=== PATIENT | female | born 1980 | race Caucasian/White ===

== ENCOUNTER 2016-06-28 21:44 | Emergency (ER) | payer OTHER ==
[~2016-06-28] VITALS: Ht 152.4 cm; Wt 96.7 kg
[~2016-06-28 21:44] MED LIST: CAMILA0.35 MG PO; CIPRO500 MG PO; CYMBALTA60 MG PO; HEMOCYTE324 MG PO; IBUPROFEN800 MG PO; MOTRIN800 MG PO; TYLENOL EXTRA500 MG PO; TYLENOL WITH C1 EACH PO
[2016-06-28 23:33] VITALS: BP 119/88
== END 2016-06-28 23:42 | disposition home or self-care (01) ==
LOC: EME 21:44 → EXP 21:44
DX: R51 Headache (principal); S06.0X0A Concussion without loss of consciousness, initial encounter; F17.200 Nicotine dependence, unspecified, uncomplicated; W22.03XA Walked into furniture, initial encounter
CPT/HCPCS: 70450; 99281; 99283

== ENCOUNTER 2016-09-09 16:31 | Emergency (ER) | payer OTHER ==
[~2016-09-09] VITALS: Ht 152.4 cm; Wt 97.9 kg
[2016-09-09 18:59] LABS: EOSINOPHIL (%) 2.7 % (0-5); EOSINOPHIL COUNT 0.2 K/uL (0-0.3); HEMATOCRIT 38.9 % (36.0-46.0); IMMATURE GRANULOCYTE (%) 0.4 % (0.0-0.7); INSTRUMENT ABS NEUTROPHIL CT 5.3 K/uL; LYMPHOCYTE COUNT 1.4 K/uL (1.0-2.8); MCH 28.1 PG (29.0-34.0); MCHC 33.4 G/DL (30.0-36.0); MCV 84.2 FL (83-99); MEAN PLAT.VOLUME 10.5 uM^3 (9.5-12.4); MONOCYTE (%) 6.9 % (3-12); MONOCYTE COUNT 0.5 K/uL (0-0.8); NEUTROPHIL (%) 71.1 % (45-76); NEUTROPHIL COUNT 5.3 K/uL (1.8-6.4); PLATELET COUNT 247 K/uL (156-360); RBC DIS.WIDTH-CV 12.3 % (11.8-14.6); RBC DIS.WIDTH-SD 37.5 % (39-53); RED BLOOD COUNT 4.62 M/uL (3.80-5.20); WHITE BLOOD COUNT 7.5 K/uL (4.1-10.2)
[2016-09-09 19:10] LABS: CHLORIDE 106 mEq/L (99-109); POTASSIUM 4.2 mEq/L (3.7-5.4); SODIUM 137 mEq/L (136-147)
[2016-09-09 19:12] LABS: GLUCOSE 91 mg/dL (70-99)
[2016-09-09 19:13] LABS: ANION GAP 9 MEQ/L (2-14)
[2016-09-09 19:16] LABS: GFR ESTIMATE (CALCULATED) > 59 mL/min/; UREA NITROGEN (BUN) 8 mg/dL (9-23)
[2016-09-09 19:45] LABS: QUANTITATIVE HCG 52811.1 MIU/ML
[2016-09-09 20:44] VITALS: BP 114/77
== END 2016-09-09 20:47 | disposition home or self-care (01) ==
LOC: EME 16:31
PROVIDERS: Emergency Medicine
DX: O20.0 Threatened abortion (principal); Z3A.11 11 weeks gestation of pregnancy; Z87.891 Personal history of nicotine dependence
CPT/HCPCS: 76801; 80048; 84702; 85025; 86900; 86901; 99281; 99285